=== PATIENT | female | born 1945 | race Caucasian/White ===

== ENCOUNTER 2022-05-23 13:01 | Emergency (ER) | payer OTHER, BC ==
[2022-05-23 13:50] VITALS: BP 146/70; PULSE 73; RESP 20; TEMP 97.8; BMI 40.2
[2022-05-23] MEDS ORDERED: CEPHALEXIN MONOHYDRATE 500 MG CAPSULE (UD) PO ONE (15:58)
[2022-05-23] MEDS ORDERED: DIPHTH,PERTUSS(ACELL),TET 0.5 ML DISP.SYRIN IM ONE ×2 (15:58→16:28)
[2022-05-23] MEDS ORDERED: CEPHALEXIN MONOHYDRATE 500 MG CAPSULE (UD) ONE (16:28)
== END 2022-05-23 16:51 | disposition home or self-care (01) ==
LOC: FER 13:01
PROC: 3E0234Z Introduction of Serum, Toxoid and Vaccine into Muscle, Percutaneous Approach (ICD-10-PCS; principal; 2022-05-23)
PROC: 0HQGXZZ Repair Left Hand Skin, External Approach (ICD-10-PCS; 2022-05-23)
PROC: 2W3HX1Z Immobilization of Left Thumb using Splint (ICD-10-PCS; 2022-05-23)
DX: S66.992A Other injury of unspecified muscle, fascia and tendon at wrist and hand level, left hand, initial encounter (principal); W26.0XXA Contact with knife, initial encounter; Y93.G1 Activity, food preparation and clean up
CPT/HCPCS: 12001-25; 29130; 90471; 90715; 99284-25